=== PATIENT | female | born 1935 | race Caucasian/White ===

== ENCOUNTER 2017-08-03 14:20 | Inpatient (IN) | payer OTHER ==
[~2017-08-03] VITALS: Ht 167.6 cm; Wt 54.4 kg
[2017-08-03] MEDS ORDERED: SODIUM CHLORIDE 0.9% 2,000 ML IV ONE (15:00)
[2017-08-03 15:07] LABS: Basophils # (auto) 0 uL; Eosinophils # (auto) 0 uL; Eosinophils % (auto) 0.1 % (0.0-7.0); Hemoglobin 12.1 g/dL (12.2-16.2); Lymphocytes # (auto) 0.3 uL; Monocytes # (auto) 0.6 uL
[2017-08-03 15:09] LABS: Basophils % (auto) 0.1 % (0.0-2.0); Hematocrit 37.8 % (36.0-46.0); Lymphocytes % (auto) 5.8 % (10.0-50.0); Mean Corpuscular Hemoglobin 32.4 pg (28.0-32.0); Mean Corpuscular Volume 101.1 fL (80.0-100.0); Monocytes % (auto) 11.8 % (0.0-12.0); Neutrophils # (auto) 4.4 uL; Neutrophils % (auto) 82.2 % (37.0-80.0); Platelet Count (auto) 169 10^3/uL (140-450); Red Blood Cells 3.74 10^6/uL (4.0-5.20); Red Cell Distribution Width 14.3 % (11.8-14.3); White Blood Cell 5.4 10^3/uL (4.4-10.8)
[2017-08-03 15:30] LABS: Albumin 3.4 g/dL (3.4-5.0); BUN/Creatinine Ratio 62.8; Bilirubin, Total 0.4 mg/dL (0.2-1.0); Calcium 7.8 mg/dL (8.5-10.1); Potassium 4.9 mmol/L (3.5-5.1)
[2017-08-03] MEDS ORDERED: NOREPINEPHRINE 8 MG/250ML KIT 250 ML IV SCH (18:00)
[2017-08-03] MEDS ORDERED: NALBUPHINE HCL 10 MG/1ml INJECTION IV PRN (19:30)
[2017-08-03] MEDS ORDERED: SODIUM CHLORIDE 0.9% 1,000 ML IV SCH (19:42)
[2017-08-03] MEDS ORDERED: cefTRIAXone 1GM/10ml IVPUSH 10 ML IV ONE (19:45)
[2017-08-03] MEDS ORDERED: ONDANSETRON HCL 4 MG/2 ML VIAL IV PRN (19:45)
[2017-08-03] MEDS ORDERED: VANCOMYCIN PER PHARMACY 0 MG IV SCH (19:45)
[2017-08-03] MEDS ORDERED: SODIUM CHLORIDE 0.9% 1,000 ML IV ONE (20:00)
[2017-08-03 20:29] LABS: Urine Bacteria MANY /hpf (None Seen); Urine Blood TRACE /uL (Negative); Urine Specific Gravity 1.017 (1.001-1.035); Urine WBC 3 /hpf (0 - 5)
[2017-08-03] MEDS ORDERED: VANCOMYCIN 1GM/250ML 250 ML IV ONE (21:30)
[2017-08-03 22:21] VITALS: BP 57/36
[2017-08-03] MEDS ORDERED: ATOR10TA PO (23:43)
[2017-08-03] MEDS ORDERED: ASPI81CH43 GT (23:43)
[2017-08-03] MEDS ORDERED: LEVO175T31 PO (23:43)
[2017-08-03] MEDS ORDERED: AMLO5TAB2 PO (23:43)
[2017-08-03] MEDS ORDERED: HYDR-4683 PO (23:43)
[2017-08-03] MEDS ORDERED: WARF2.5T39 PO (23:43)
[2017-08-03] MEDS ORDERED: PRENTAB76 PO (23:43)
[2017-08-03] MEDS ORDERED: LISI10TA6 PO (23:43)
[2017-08-03] MEDS ORDERED: ALBU0.084 NEB (23:43)
[2017-08-03] MEDS ORDERED: MULT-228 PO (23:43)
[2017-08-03] MEDS ORDERED: ASPI81CH59 PO (23:43)
[2017-08-04] MEDS ORDERED: ALBUTEROL SULF 2.5 MG/0.5ML(0.5%) NEB SOLN NEB SCH
[2017-08-04] MEDS ORDERED: cefTRIAXone 1GM/10ml IVPUSH 10 ML IV SCH (09:00)
[2017-08-04] MEDS ORDERED: ENOXAPARIN SOD 40 MG/0.4 ML SYRINGE SC SCH (10:00)
== END 2017-08-03 21:33 | disposition expired | DRG 871 ==
LOC: ER 14:23 → EAST 14:24
PROVIDERS: ADMIT Internal Medicine; ATTEND Internal Medicine
DX: A41.9 Sepsis, unspecified organism (principal); J96.21 Acute and chronic respiratory failure with hypoxia; R40.20 Unspecified coma; J69.0 Pneumonitis due to inhalation of food and vomit; J44.1 Chronic obstructive pulmonary disease with (acute) exacerbation; R64 Cachexia; J98.11 Atelectasis; Z68.1 Body mass index [BMI] 19.9 or less, adult; I51.7 Cardiomegaly; E83.51 Hypocalcemia; D63.1 Anemia in chronic kidney disease; N18.2 Chronic kidney disease, stage 2 (mild); I12.9 Hypertensive chronic kidney disease with stage 1 through stage 4 chronic kidney disease, or unspecified chronic kidney disease; R62.7 Adult failure to thrive; Z51.5 Encounter for palliative care; Z85.850 Personal history of malignant neoplasm of thyroid; Z87.891 Personal history of nicotine dependence; Z99.81 Dependence on supplemental oxygen
CPT/HCPCS: 36415; 51702; 71045; 71250; 80053; 81001; 83605; 84484; 85025; 85379; 87040; 87086; 87088; 87186; 93005; 94761; 96361; 96365; 96375